=== PATIENT | male | born 1980 | race Caucasian/White ===

== ENCOUNTER 2017-02-22 15:07 | Emergency (ER) | payer OTHER ==
[~2017-02-22] VITALS: Ht 180.3 cm; Wt 77.1 kg
--- NOTE | 2017-02-22 15:12 | NUR ---
PT AMBULATORY TO ER BED 12. C/O CHEST PAIN, FACIAL AND BILAT NUMBNESS X 1 .5 HOUR UTILIZATION MANAGEMENT RN. PT APPEARS ANXIOUS. TACHY OTHERWISE STABLE VITALS. AWAITING MD MEDINA.
--- NOTE | 2017-02-22 15:47 | NUR ---
DR PERSAUD AT BEDSIDE FOR EVAL.
--- NOTE | 2017-02-22 17:15 | NUR ---
Patient discharged to home in stable condition. Written and verbal after care instructions given. Patient verbalizes understanding of instruction.
[2017-02-22 17:16] VITALS: BP 132/98
== END 2017-02-22 17:16 | disposition home or self-care (01) ==
LOC: ER 15:08
DX: R07.89 Other chest pain (principal); F41.9 Anxiety disorder, unspecified; Z87.891 Personal history of nicotine dependence; I10 Essential (primary) hypertension
CPT/HCPCS: 71010; 93005; 99284; A4606; Z7610